=== PATIENT | female | born 1995 | race Caucasian/White ===

== ENCOUNTER 2019-01-04 17:29 | Emergency (ER) | payer SELFPAY, OTHER ==
[2019-01-04] MEDS: ONDANSETRON (ODT) 4 MG TAB ODT (17:59)
== END 2019-01-04 18:25 | disposition home or self-care (01) ==
LOC: FTE 17:29
DX: R19.7 Diarrhea, unspecified (principal); R11.2 Nausea with vomiting, unspecified
CPT/HCPCS: 99283